=== PATIENT | female | born 1965 | race Caucasian/White ===

== ENCOUNTER 2018-06-10 10:02 | Outpatient (CLI) | payer BC ==
--- NOTE | 2018-06-10 12:32 | ULT ---
LIMITED RIGHT AXILLARY ULTRASOUND: DATE: 06/10/2018. PROVIDED CLINICAL HISTORY: Axillary pain. FINDINGS: Limited sonographic interrogation of the right axilla was performed. The sonographic appearance of t he breast tissue in this region is normal. IMPRESSION: BI-RADS category 1 - negative. Negative imaging findings should to preclude further evaluation of a clinically suspicious finding. The patient is referred back to her clinician. POS: OFF
== END 2018-06-10 10:03 | disposition home or self-care (01) ==
LOC: BICMAMMO 10:02
PROVIDERS: ATTEND Family Medicine
DX: N64.4 Mastodynia (principal)
CPT/HCPCS: 76999; 77066; G0279